=== PATIENT | female | born 1940 | race Hispanic/Latino ===

== ENCOUNTER 2017-05-21 12:21 | Outpatient (CLI) | payer MEDICARE ==
--- NOTE | 2017-05-21 13:18 | Mammography Report ---
BONE DENSITY STUDY: DEFINITIONS: BMD = Bone Mineral Density T-score = BMD related to mean peak bone mass of young adult (mean expressed in Standard Deviation) Z-score = Age matched BMD expressed in SD World Health Organization (WHO) Diagnostic Criteria Normal T-score > -1 SD Osteopenia T-score between -1 and -2.4 SD Osteoporosis T-score -2.5 SD or below FINDINGS: The weighted average BMD of lumbar spine L1-L4 is 0.922 with a T-score of -1.1. The weighted average BMD of hip is 1.045 with a T-score of 0.8. IMPRESSION: The patient's T-score is diagnostic for osteopenia and average relative risk for fracture. NOTE: BMD is not the only risk factor for fracture; also consider factors such as the patient's age, risk of falling, previous osteoporotic fracture, family history of osteoporotic fractures, current smoker, and low body weight. Aranda's triangle is a region of interest in femur, predominantly of trabecular bone. It is not a true anatomic site, and [facility] does not recommend its use clinically.
== END 2017-05-21 12:22 | disposition home or self-care (01) ==
LOC: SPVWC 12:21
PROVIDERS: ATTEND Internal Medicine
DX: M85.88 Other specified disorders of bone density and structure, other site (principal); Z78.0 Asymptomatic menopausal state
CPT/HCPCS: 77080

== ENCOUNTER 2017-11-10 13:05 | Outpatient (CLI) | payer MEDICARE ==
--- NOTE | 2017-11-10 14:26 | XRay Report ---
XRAY CHEST TWO VIEWS: 11/10/17 13:05:00 CLINICAL: Cough.History of breast cancer status post bilateral mastectomy. COMPARISON: 03/19/08 FINDINGS: The heart is large. Central vascular congestion with enlargement and indistinctness of central pulmonary vessels. The upper lung sharma are clear. Bibasal alveolar opacity is on the frontal view. However, the lungs are completely clear on the lateral view. No pulmonary consolidation. No pleural effusion.Exaggerated thoracic kyphosis and multilevel anterior and lateral osteophytes of the thoracic spine. IMPRESSION: Mild CHF and mild bibasal atelectasis on the frontal view.No pneumonia.
== END 2017-11-10 13:06 | disposition home or self-care (01) ==
LOC: XRAY 13:05 → SPVIMAG 13:05
PROVIDERS: ATTEND Internal Medicine
DX: I50.9 Heart failure, unspecified (principal); J98.11 Atelectasis; M40.294 Other kyphosis, thoracic region
CPT/HCPCS: 71046